=== PATIENT | female | born 1945 | race American Indian/Alaskan Native ===

== ENCOUNTER 2017-04-06 09:07 | Day surgery (SDC) | payer MEDICARE ==
[2017-04-04 11:50] VITALS: BMI 26.6
[2017-04-06] MEDS ORDERED: Propofol 10 mg/ml Inj (20 ML) ONE (10:36)
[2017-04-06] MEDS ORDERED: Sodium Chloride 0.9% 1,000 ML IV SCH (11:00)
[2017-04-06 13:32] VITALS: BP 122/70; PULSE 51; RESP 16; TEMP 98; O2SAT 99
== END 2017-04-06 12:21 | disposition home or self-care (01) ==
LOC: ENDO 09:07
PROVIDERS: ATTEND Internal Medicine Gastroenterology
DX: Z12.11 Encounter for screening for malignant neoplasm of colon (principal); Z80.0 Family history of malignant neoplasm of digestive organs; K57.30 Diverticulosis of large intestine without perforation or abscess without bleeding; K64.1 Second degree hemorrhoids; E03.9 Hypothyroidism, unspecified
CPT/HCPCS: 45378; J2704; J7040 ×2

== ENCOUNTER 2018-08-09 09:01 | Outpatient (CLI) | payer MEDICARE | END 2018-08-09 09:02 | disposition home or self-care (01) | LOC: RAD 09:01 | DX: Z12.31 Encounter for screening mammogram for malignant neoplasm of breast (principal) ==